=== PATIENT | female | born 1945 | race Caucasian/White ===

== ENCOUNTER → 2020-01-26 11:58 | Outpatient (BNVA) | payer MEDICARE, OTHER, SELFPAY | PROVIDERS: PCP Family Medicine; Visit Provider Family Medicine | DX: E78.5 Hyperlipidemia, unspecified (principal); I10 Essential (primary) hypertension; K21.9 Gastro-esophageal reflux disease without esophagitis; Z12.31 Encounter for screening mammogram for malignant neoplasm of breast; M81.0 Age-related osteoporosis without current pathological fracture; J30.2 Other seasonal allergic rhinitis; M19.90 Unspecified osteoarthritis, unspecified site; E78.2 Mixed hyperlipidemia | CPT/HCPCS: 80053; 80061; 84443 ==

== ENCOUNTER → 2020-02-01 10:30 | Outpatient (BNVA) | payer MEDICARE, OTHER, SELFPAY | PROVIDERS: PCP Family Medicine; Visit Provider Family Medicine | DX: R79.89 Other specified abnormal findings of blood chemistry (principal); E03.9 Hypothyroidism, unspecified | CPT/HCPCS: 84439; 84443 ==

== ENCOUNTER → 2020-02-07 15:13 | Outpatient (BNVA) | payer MEDICARE, OTHER, SELFPAY | PROVIDERS: PCP Family Medicine; Visit Provider Family Medicine | DX: R35.0 Frequency of micturition (principal); N30.01 Acute cystitis with hematuria; R30.0 Dysuria | CPT/HCPCS: 81001 ==

== ENCOUNTER 2020-03-30 13:29 | Outpatient (CLI) | payer MEDICARE, OTHER, SELFPAY ==
--- NOTE | 2020-03-30 14:00 | MM_ITS ---
WS: [id number] SCREENING DIGITAL MAMMOGRAM WITH CAD HISTORY: screening COMPARISON: 05/13/2018 and 05/08/2017 Bilateral CC and MLO views submitted. Computer aided detection analyzed. Breast composition: There are scattered areas of fibroglandular density. No suspicious masses, microc alcifications or architectural distortion. Benign calcification upper-outer quadrant RIGHT breast. MM/[place] [id number] IMPRESSION: BI-RADS: 2-Benign FOLLOW UP: 1 Year Follow-up
--- NOTE | 2020-03-30 14:09 | XR_ITS ---
WS: [id number] SCREENING DEXA SCAN [facility] CLINICAL INFORMATION: osteoporosis COMPARISON: May 13, 2018 FINDINGS: The L1-L4 bone mineral density measures 1.069 g/cm2. This corresponds to a T score score of -0.9 and Z score of 0.8. Endplate sclerosis spuriously elevates bone mineral density Left femoral neck bone mineral density measures 0.781 g/cm2. This corresponds to a T score of -1.8 an d Z score of 0.0. Right femoral neck bone mineral density measures 0.792 g/cm2. This corresponds to a T score -1.7of an d Z score of 0.1. Mean femoral neck bone mineral density measures 0.787 g/cm2. This corresponds to a T score of -1.8 an d Z score of 0.0. XR/XR DEXA axial skeleton* [id number] IMPRESSION: Osteopenia in the femoral necks and lumbar spine. Patient's FRAX calculated 10 year probability for major osteoporotic fracture i s 33.8 % and osteoporotic hip fracture is 20.2%.
== END 2020-03-30 13:30 | disposition home or self-care (01) ==
LOC: RADSHAW 13:32
PROVIDERS: PCP Family Medicine; Visit Provider Family Medicine
DX: M81.0 Age-related osteoporosis without current pathological fracture (principal); Z12.31 Encounter for screening mammogram for malignant neoplasm of breast
CPT/HCPCS: 77067; 77080

== ENCOUNTER → 2020-07-11 10:53 | Outpatient (BNVA) | payer MEDICARE, OTHER, SELFPAY | PROVIDERS: PCP Family Medicine; Visit Provider Family Medicine | DX: E78.5 Hyperlipidemia, unspecified (principal); I10 Essential (primary) hypertension; K21.9 Gastro-esophageal reflux disease without esophagitis; E78.2 Mixed hyperlipidemia | CPT/HCPCS: 80053; 80061; 84443; 85025 ==

== ENCOUNTER → 2020-07-23 10:04 | Outpatient (BNVA) | payer MEDICARE, OTHER, SELFPAY | PROVIDERS: PCP Family Medicine; Visit Provider Family Medicine | DX: R79.89 Other specified abnormal findings of blood chemistry (principal); E78.2 Mixed hyperlipidemia; I10 Essential (primary) hypertension; K21.9 Gastro-esophageal reflux disease without esophagitis | CPT/HCPCS: 84439; 84481 ==

== ENCOUNTER 2020-12-02 14:25 | Emergency (ER) | payer MEDICARE, OTHER, SELFPAY ==
[2020-12-02] VITALS (8 sets, daily range): BP systolic 92–119; BP diastolic 64–85; PULSE 86–125; RESP 17–21; TEMP 36.8; O2SAT 92–100; BMI 23.0
--- NOTE | 2020-12-02 15:09 | XRR_ITS ---
PROCEDURE INFORMATION: Exam: XR Chest Exam date and time: 12/02/2020 3:41 PM Age: 75 years old Clinical indication: Shortness of breath; Additional info: SOB TECHNIQUE: Imaging protocol: XR of the chest. Views: 1 view. COMPARISON: No relevant prior studies available. FINDINGS: Lungs: Hyperinflation of lungs. Moderate emphysema. No focal airspace opacities. Pleural spaces: Unremarkable. No pleural effusion. No pneumothorax. Heart/Mediastinum: Unremarkable. No cardiomegaly. Vasculature: Moderate atherosclerosis. Bones/joints: Unremarkable. XR/XR chest 1V portable [id number] IMPRESSION: No acute chest findings.
--- NOTE | 2020-12-02 15:59 | W.ED.GENADLT ---
HPI - General Adult General: Chief complaint: General Medical Stated complaint: rapid heartbeat, SOB Time Seen by Provider: 12/02/20 15:49 History of Present Illness: HPI narrative: The patient is a 75-year-old female with past medical history high blood pressure and old tachycardias who comes to the ER complaining of rapid heartbeat and palpitations since 4 AM this morning. 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 She says she has a finger pulse ox at home which at times has been reading in the 120s when she is just sitting there. She says she had an episode of tachycardia in the past years ago and wore a Holter monitor which showed nothing but has not had any problems since. With exertion her tachycardia and palpitations worsen. Onset (ago): hour(s) (12) Severity: moderate Pain Consistency: constant Associated symptoms: Reports palpitations; Deny confusion, dyspnea, headache(s) or rash Review of Systems General: Reports: 10 or more systems reviewed and unremarkable except in HPI and below Const: Denies: fatigue Eyes: Denies: change in vision, blurry vision or eye redness ENMT: Denies: throat pain, swelling of lips/tongue, ear or mastoid pain or nasal congestion Card: Reports: palpitations Resp: Denies: dyspnea, productive cough or non-productive cough GI: Denies: abdominal pain, diarrhea or GI cramping : Denies: flank pain, difficulty voiding, urinary frequency or urinary urgency Musc: Denies: neck pain, back pain, extremity pain, joint pain, joint redness, limited range of motion or muscle weakness Skin/Breast: Denies: rash, pruritus, erythema, skin pain or skin tenderness Neuro: Denies: headache(s), numbness in extremities, weakness in extremities, sensory changes, difficulty walking, dizziness, confusion or Slurred speech present Psych: Denies: anxiety or depression Endo: Denies: polyuria All/Imm: Denies: urticaria, throat swelling or tongue swelling PFSH ED PFSH: Medical History (Updated 12/02/20 @ 19:51 by Evin Esquivel DO) Gastroesophageal reflux disease Hyperlipidemia Hypertension Osteoporosis Social History Smoking and tobacco status: never smoked Alcohol intake: never Physical Exam Const: COMMON NORMALS: no acute distress, average body habitus, patient oriented x3, no limitations, healthy appearing, alert and well nourished GENERAL APPEARANCE: cooperative, comfortable, well kempt and well developed ORIENTATION/CONSCIOUSNESS: Yes awake, Yes oriented to person, Yes oriented to place and Yes oriented to time HENMT: COMMON NORMALS: normocephalic, external ears normal and Normal external nose present HEAD & SCALP: normal to inspection and normocephalic NOSE: Normal external nose present EXTERNAL EAR: Yes external ears normal MOUTH: Normal oral and palatal mucosa present THROAT: posterior oropharynx normal Eye: COMMON NORMALS: Equal, round and reactive pupils present and EOMs intact bilaterally GENERAL EYE: appearance normal, both eyes and all related structures PUPIL: Yes Equal, round and reactive pupils present Neck/C-Spine: COMMON NORMALS: full ROM, no lymphadenopathy, no meningeal signs and no JVD GENERAL: Yes normal visual inspection Lymph: LYMPHATIC: no lymphadenopathy noted Chest: COMMONS NORMALS: normal inspection of the chest and normal palpation of entire chest wall Resp: COMMON NORMALS: normal respiratory effort, No retractions, No use of accessory muscles, clear to auscultation bilaterally and percussion normal EFFORT & INSPECTION: Yes able to speak in complete sentences AUSCULTATION: clear to auscultation bilaterally PERCUSSION: percussion normal Cardio: COMMON NORMALS: no JVD, regular rate, regular rhythm, S1 normal heart sound present, S2 normal heart sound present and Peripheral pulses 2+ throughout RATE: regular rate RHYTHM: regular rhythm HEART SOUNDS: S1 normal heart sound present and S2 normal heart sound present PERIPHERAL PULSES: Peripheral pulses 2+ throughout GI: COMMON NORMALS: Normal to inspection, nondistended, normoactive bowel sounds present, Soft to palpation, non-tender and no masses INSPECTION: Yes normal to inspection PALPATION: Yes Soft to palpation : COMMON NORMALS: Yes no CVA tenderness BLADDER/KIDNEY EXAM: Yes no CVA tenderness Back/Pelvis: COMMON NORMALS: no CVA tenderness, thoracic and lumbar spine normal to inspection, no thoracic nor lumbar tenderness and thoraco-lumbar ROM normal Extremity: COMMON NORMALS: normal to inspection, full ROM, capillary refill normal, no joint enlargement and no pedal edema GENERAL: Yes normal exam except as noted Neuro: COMMON NORMALS: patient oriented x3, CN's II-XII intact bilaterally, moves all extremities, no focal motor deficits, no sensory deficits noted and gait normal SENSORIUM/ORIENTATION: Yes alert, Yes oriented to person, Yes oriented to place and Yes oriented to time MENINGEAL SIGNS: Yes no meningeal signs Psych: COMMON NORMALS: mental status grossly normal, Normal thought process present, cooperative, normal affect and speech normal APPEARANCE: Yes well kempt ATTITUDE: Yes calm SPEECH: Yes normal speech THOUGHT PROCESS: Normal thought process present Skin: COMMON NORMALS: no rashes or lesions noted GENERAL SKIN EXAM: no rashes or lesions noted Course Vital Signs: Vital signs: Vital Signs Temperature 98.2 F 12/02/20 14:55 Pulse Rate 86 12/02/20 20:36 Respiratory Rate 17 12/02/20 20:36 Blood Pressure 119/85 12/02/20 20:36 Pulse Oximetry 99 12/02/20 20:36 MDM - General Adult MDM Narrative: Medical decision making narrative: Signed out to Dr. Esquivel at shift change. TSH pending. Lab Data: Labs: Lab Results 12/02/20 12/02/20 12/02/20 Range/Units 16:18 16:18 16:18 WBC 8.2 (4.0-10.0) 10^3/ uL RBC 4.88 (4.1-5.3) 10^6/u L Hgb 13.4 (11.5-15.3) g/dL Hct 42.0 (37.0-47.0) % MCV 86.1 (81-99) fL MCH 27.5 L (28.0-34.0) pg MCHC 31.9 (30.0-36.0) g/dL RDW 14.6 (12.1-15.1) % Plt Count 227 (130-400) 10^3/c mm MPV 11.3 H (7.4-10.4) fL Neut % (Auto) 66.2 % Lymph % (Auto) 22.9 % Phillips % (Auto) 9.6 % Eos % (Auto) 0.9 % Baso % (Auto) 0.2 % Neut # (Auto) 5.40 (1.8-7.7) 10^3/u L Lymph # (Auto) 1.9 (0.8-4.8) 10^3/u L Phillips # (Auto) 0.8 (0.2-0.9) 10^3/u L Eos # (Auto) 0.1 (0.0-0.8) 10^3/u L Baso # (Auto) 0.0 (0.0-0.1) 10^3/u L Nucleated RBC % (a uto) 0 % Nucleated RBCs # 0.0 /100WBC D-Dimer (0-0.59) ug/mIFE U Sodium 143 (136-145) mmol/L Potassium 3.8 (3.5-5.1) mmol/L Chloride 106 (98-107) mmol/L Carbon Dioxide 26 (22-29) mmol/L Anion Gap 14.8 (5-19) BUN 17 (8-23) mg/dL Creatinine 0.8 (0.5-0.9) mg/dL GFR Calculation Not Reportable Glucose 93 (65-115) mg/dL Calculated Osmolal ity 297 H (285-295) mOsm/k g Calcium 8.3 L (8.5-10.5) mg/dL Total Bilirubin 0.3 (0.15-1.2) mg/dL AST 27 (0-32) U/L ALT 29 (0-33) U/L Alkaline Phosphata se 64 (35-105) IU/L Troponin T Baselin e 47 H (0-10) ng/L Troponin T 120 Min [place] (0-10) ng/L Delta Troponin T (0-10) ABS# NT-Pro-B Natriuret Pep 1518 H (0-450) pg/mL Total Protein 6.7 (6.6-8.7) g/dL Albumin 4.3 (3.5-5.2) g/dL Globulin 2.4 (1.3-4.6) g/dL TSH (0.27-4.20) uIU/ mL Urine Color (Yellow) Urine Appearance (CLEAR) Urine pH (5-7) Ur Specific Gravit y (1.005-1.030) Urine Protein (Negative) Urine Glucose (UA) (Normal) Urine Ketones (Negative) Urine Blood (Negative) Urine Nitrate (Negative) Urine Bilirubin (Negative) Urine Urobilinogen (Negative) mg/dL Ur Leukocyte Orly ase (Negative) Urine RBC (0-2) /hpf Urine WBC (0-5) /hpf Ur Squamous Epith Cells (0-5) /hpf Amorphous Sediment Urine Bacteria (NONE) /hpf 12/02/20 12/02/20 12/02/20 Range/Units 16:18 16:18 17:36 WBC (4.0-10.0) 10^3/ uL RBC (4.1-5.3) 10^6/u L Hgb (11.5-15.3) g/dL Hct (37.0-47.0) % MCV (81-99) fL MCH (28.0-34.0) pg MCHC (30.0-36.0) g/dL RDW (12.1-15.1) % Plt Count (130-400) 10^3/c mm MPV (7.4-10.4) fL Neut % (Auto) % Lymph % (Auto) % Phillips % (Auto) % Eos % (Auto) % Baso % (Auto) % Neut # (Auto) (1.8-7.7) 10^3/u L Lymph # (Auto) (0.8-4.8) 10^3/u L Phillips # (Auto) (0.2-0.9) 10^3/u L Eos # (Auto) (0.0-0.8) 10^3/u L Baso # (Auto) (0.0-0.1) 10^3/u L Nucleated RBC % (a uto) % Nucleated RBCs # /100WBC D-Dimer 1.03 H (0-0.59) ug/mIFE U Sodium (136-145) mmol/L Potassium (3.5-5.1) mmol/L Chloride (98-107) mmol/L Carbon Dioxide (22-29) mmol/L Anion Gap (5-19) BUN (8-23) mg/dL Creatinine (0.5-0.9) mg/dL GFR Calculation Glucose (65-115) mg/dL Calculated Osmolal ity (285-295) mOsm/k g Calcium (8.5-10.5) mg/dL Total Bilirubin (0.15-1.2) mg/dL AST (0-32) U/L ALT (0-33) U/L Alkaline Phosphata se (35-105) IU/L Troponin T Baselin e (0-10) ng/L Troponin T 120 Min [place] (0-10) ng/L Delta Troponin T (0-10) ABS# NT-Pro-B Natriuret Pep (0-450) pg/mL Total Protein (6.6-8.7) g/dL Albumin (3.5-5.2) g/dL Globulin (1.3-4.6) g/dL TSH 0.01 L (0.27-4.20) uIU/ mL Urine Color Yellow (Yellow) Urine Appearance Clear (CLEAR) Urine pH 7 (5-7) Ur Specific Gravit y 1.010 (1.005-1.030) Urine Protein Neg (Negative) Urine Glucose (UA) Norm (Normal) Urine Ketones Negative (Negative) Urine Blood Neg (Negative) Urine Nitrate Negative (Negative) Urine Bilirubin Neg (Negative) Urine Urobilinogen Norm (Negative) mg/dL Ur Leukocyte Orly ase 2+ H (Negative) Urine RBC None (0-2) /hpf Urine WBC 15-25 H (0-5) /hpf Ur Squamous Epith Cells 0-4 H (0-5) /hpf Amorphous Sediment Not Reportable Urine Bacteria 2+ H (NONE) /hpf 12/02/20 Range/Units 18:40 WBC (4.0-10.0) 10^3/ uL RBC (4.1-5.3) 10^6/u L Hgb (11.5-15.3) g/dL Hct (37.0-47.0) % MCV (81-99) fL MCH (28.0-34.0) pg MCHC (30.0-36.0) g/dL RDW (12.1-15.1) % Plt Count (130-400) 10^3/c mm MPV (7.4-10.4) fL Neut % (Auto) % Lymph % (Auto) % Phillips % (Auto) % Eos % (Auto) % Baso % (Auto) % Neut # (Auto) (1.8-7.7) 10^3/u L Lymph # (Auto) (0.8-4.8) 10^3/u L Phillips # (Auto) (0.2-0.9) 10^3/u L Eos # (Auto) (0.0-0.8) 10^3/u L Baso # (Auto) (0.0-0.1) 10^3/u L Nucleated RBC % (a uto) % Nucleated RBCs # /100WBC D-Dimer (0-0.59) ug/mIFE U Sodium (136-145) mmol/L Potassium (3.5-5.1) mmol/L Chloride (98-107) mmol/L Carbon Dioxide (22-29) mmol/L Anion Gap (5-19) BUN (8-23) mg/dL Creatinine (0.5-0.9) mg/dL GFR Calculation Glucose (65-115) mg/dL Calculated Osmolal ity (285-295) mOsm/k g Calcium (8.5-10.5) mg/dL Total Bilirubin (0.15-1.2) mg/dL AST (0-32) U/L ALT (0-33) U/L Alkaline Phosphata se (35-105) IU/L Troponin T Baselin e (0-10) ng/L Troponin T 120 Min [place] 46.98 H (0-10) ng/L Delta Troponin T -0.02 L (0-10) ABS# NT-Pro-B Natriuret Pep (0-450) pg/mL Total Protein (6.6-8.7) g/dL Albumin (3.5-5.2) g/dL Globulin (1.3-4.6) g/dL TSH (0.27-4.20) uIU/ mL Urine Color (Yellow) Urine Appearance (CLEAR) Urine pH (5-7) Ur Specific Gravit y (1.005-1.030) Urine Protein (Negative) Urine Glucose (UA) (Normal) Urine Ketones (Negative) Urine Blood (Negative) Urine Nitrate (Negative) Urine Bilirubin (Negative) Urine Urobilinogen (Negative) mg/dL Ur Leukocyte Orly ase (Negative) Urine RBC (0-2) /hpf Urine WBC (0-5) /hpf Ur Squamous Epith Cells (0-5) /hpf Amorphous Sediment Urine Bacteria (NONE) /hpf Discharge Plan Discharge Patient Disposition: Home Clinical Impression: Sinus tachycardia, Hyperthyroidism Urinary tract infection Qualifiers: Urinary tract infection type: acute cystitis Hematuria presence: without hematuria Qualified Code(s): N30.00 - Acute cystitis without hematuria Condition: Stable Prescriptions: New cefdinir 300 mg capsule 300 mg PO BID 7 Days Qty: 14 RF: 0 metoprolol tartrate 25 mg tablet 25 mg PO BID Qty: 60 RF: 0 No Action aspirin [Adult Low Dose Aspirin] 81 mg tablet,delayed release (DR/EC) 81 mg PO DAILY@0830 RF: 0 Vitamin D3 50 mcg (2,000 unit) Tablet 50 mcg PO DAILY@0830 RF: 0 zinc 1 tab PO DAILY@08 RF: 0 cyclobenzaprine 10 mg tablet 10 mg PO DAILY PRN (Reason: MUSCLE SPASMS) RF: 0 Fosamax 70 mg tablet 70 mg PO Q7D RF: 0 omeprazole 40 mg capsule,delayed release(DR/EC) 40 mg PO BID@0800,2129 RF: 0 tramadol 50 mg tablet 50 mg PO BID@0830,2129 PRN (Reason: Pain) RF: 0 lisinopril-hydrochlorothiazide 10-12.5 mg tablet 1 tab PO DAILY@08 RF: 0 Claritin 10 mg tablet 10 mg PO DAILY@829 RF: 0 Zetia 10 mg tablet 10 mg PO DAILY@2129 RF: 0 rosuvastatin 40 mg tablet 40 mg PO DAILY@2129 RF: 0 Discharge Orders: Discharge ED (Routine); Ordered 12/02/20 Ordered By: Evin Esquivel Referrals: Ivone Wyman MD [Primary Care Provider] - 4-7 days Discharge Diet: Usual diet Discharge Activity: Increase activity as tolerated Patient Instructions: Palpitations (ED), Urinary Tract Infection in Women (ED) Activity Restrictions/Additional Instructions: Occasions as directed. Monitor your heart rate and blood pressure daily. If your blood pressure gets too low, you may cut your metoprolol dose in half twice daily. Antibiotics as directed. Return for worsening feeling of heart palpitations, syncope or passing out, chest discomfort, mental status changes, fever, any other concerning symptoms peer see your doctor this week for follow-up. More outpatient testing may be needed. Coding Level of Care Code ED Grants Assistant for Melissa Fwd Exam Comprehensive
--- NOTE | 2020-12-02 16:24 | CTR_ITS ---
PROCEDURE INFORMATION: Exam: CTA Chest With Contrast Exam date and time: 12/02/2020 5:17 PM Age: 75 years old Clinical indication: Shortness of breath; Patient HX: Tachy w SOB elev d-dimer; Additional info: Tachycardia/palpitations TECHNIQUE: Imaging protocol: Computed tomographic angiography of the chest with contrast. 3D rendering (Not supervised by radiologist): MIP and/or 3D reconstructed images were created by the technologist. Radiation optimization: All CT scans at this facility use at least one of these dose optimization techniques: automated exposure control; mA and/or kV adjustment per patient size (includes targeted exams where dose is matched to clinical indication); or iterative reconstruction. Contrast material: OMNI 350; Contrast volume: 70 ml; Contrast route: INTRAVENOUS (IV); COMPARISON: CR (CHEST, ) 12/02/2020 3:47 PM RADIATION DOSE METRICS: Total DLP (mGy-cm): 506.72 FINDINGS: Pulmonary arteries: Normal. No pulmonary emboli. Aorta: Mild dilation of ascending thoracic aorta measuring 3.9 cm greatest transverse diameter. No dissection. No intramural hematoma. Moderate calcified atherosclerotic wall plaque. 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 Thyroid: Multinodular thyroid gland, incompletely assessed. Lungs: Moderate severity emphysema. No focal pulmonary consolidation. No obstructing endobronchial lesion. No septal thickening. Pleural spaces: Unremarkable. No pneumothorax. No pleural effusion. Heart: Mild dilation of cardiac chambers. No pericardial effusion. Mediastinal space: Calcified granulomas in the subcarinal space of the mediastinum. Lymph nodes: Unremarkable. No enlarged lymph nodes. Bones/joints: Unremarkable. No acute fracture. Soft tissues: Unremarkable. CT/CT angio chest PE protcl [id number] IMPRESSION: Negative CT angiogram chest. No pulmonary embolism. No acute findings. Radiation Dose CTDIVOL = (mGy): DLP = 506.72 (mGy-cm)
[2020-12-02 16:51] LABS: Basophils % 0.2 %; Eosinophils # 0.1 10^3/uL (0.0-0.8); Eosinophils % 0.9 %; Hemoglobin 13.4 g/dL (11.5-15.3); Lymphocytes # 1.9 10^3/uL (0.8-4.8); Lymphocytes % 22.9 %; Mean Corpuscular HGB Conc 31.9 g/dL (30.0-36.0); Mean Corpuscular Hemoglobin 27.5 pg (28.0-34.0); Mean Corpuscular Volume 86.1 fL (81-99); Mean Platelet Volume 11.3 fL (7.4-10.4); Monocytes # 0.8 10^3/uL (0.2-0.9); Monocytes % 9.6 %; Neutrophils % 66.2 %; Nucleated Red Blood Cells % 0 %; Platelet Count 227 10^3/cmm (130-400); Red Blood Count 4.88 10^6/uL (4.1-5.3); Red Cell Distribution Width 14.6 % (12.1-15.1); White Blood Count 8.2 10^3/uL (4.0-10.0)
[2020-12-02 17:05] LABS: D Dimer 1.03 ug/mIFEU (0-0.59)
[2020-12-02 17:16] LABS: Troponin(5th) Baseline 47 ng/L (0-10)
[2020-12-02 17:24] LABS: Alanine Aminotransferase 29 U/L (0-33); Albumin Level 4.3 g/dL (3.5-5.2); Alkaline Phosphatase 64 IU/L (35-105); Anion Gap 14.8 (5-19); Aspartate Amino Transferase 27 U/L (0-32); Blood Urea Nitrogen 17 mg/dL (8-23); Calcium 8.3 mg/dL (8.5-10.5); Carbon Dioxide 26 mmol/L (22-29); Chloride 106 mmol/L (98-107); Globulin 2.4 g/dL (1.3-4.6); Glucose 93 mg/dL (65-115); NT Pro B Type Natriuretic Pept 1518 pg/mL (0-450); Osmolality Calculated 297 mOsm/kg (285-295); Potassium 3.8 mmol/L (3.5-5.1); Sodium 143 mmol/L (136-145); Total Bilirubin 0.3 mg/dL (0.15-1.2); Total Protein 6.7 g/dL (6.6-8.7)
[2020-12-02] MEDS: iohexol 350 mg/mL 100 mL Btl IV (17:40)
[2020-12-02] MEDS: sodium chloride 0.9% 1,000 ML 999 ML IV (17:52)
[2020-12-02 17:57] LABS: Urine Appearance Clear (CLEAR); Urine Color Yellow (Yellow); pH Urine 7 (5-7)
[2020-12-02 17:58] LABS: Glucose Urine UA Norm (Normal); Protein Urine Neg (Negative)
[2020-12-02 17:59] LABS: Add Urine Microscopic? YES; Bilirubin Urine Neg (Negative); Blood Urine Neg (Negative); Ketones Urine Negative (Negative); Leukocyte Esterase Urine 2+ (Negative); Nitrate Urine Negative (Negative); Urobilinogen Urine Norm (Negative)
[2020-12-02 18:00] LABS: Add Urine Culture? Yes; Bacteria Urine 2+ /hpf; Squamous Epithelial Cell Urine 0-4 /hpf (0-5); WBC Urine 15-25 /hpf (0-5)
[2020-12-02 18:46] LABS: Thyroid Stimulating Hormone 0.01 uIU/mL (0.27-4.20)
[2020-12-02] MEDS: cefTRIAXone 1,000 MG in sodium chloride 0.9% (plus) 50 ML 100 MG IV (18:58)
[2020-12-02 19:04] LABS: Troponin 5 2HR 46.98 ng/L (0-10)
[2020-12-02 19:06] LABS: Troponin 5 2HR Delta -0.02 ABS# (0-10)
[2020-12-02] MEDS: metoprolol tartrate 1 mg/1 mL SDV 5 mL 2.5 MG IV (20:22)
--- NOTE | 2020-12-02 21:56 | ECG_ITS ---
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 Measurements Intervals [place] Rate: 119 P: MD: QRS: 68 QRSD: 85 T: 90 QT: 319 QTc: 449 Interpretive Statements SUPRAVENTRICULAR TACHYCARDIA POSSIBLE RIGHT VENTRICULAR CONDUCTION DELAY [RSR (QR) IN V1/V2] ANTEROSEPTAL MYOCARDIAL INFARCTION [40+ ms Q WAVE IN V1-V4], OF INDETERMINATE AGE Compared to ECG 02/09/2017 10:05:42 Myocardial infarct finding now present Sinus rhythm no longer present Electronically Signed On 12-03-2020 20:15:35 CDT by Lazaro Jimenez M.D. [email or web address]
--- NOTE | 2020-12-03 13:36 | DCPLANNER ---
shipping manager had message to schedule a follow up appointment for patient with endocrinology. shipping manager called the office of Dr. Jacobson, gave clinic patients information. A follow up appointment was scheduled for Thursday, December 12, 2020 at 10:[address] Jacobson. shipping manager called patient and gave patient the appointment information. Patient stated that she would go to the appointment.
--- NOTE | 2020-12-19 13:17 | DCPLANNER ---
Patient had a follow up appointment scheduled for endocrinology for 12.12.20, this appointment was rescheduled.
== END 2020-12-02 20:37 | disposition home or self-care (01) ==
PROVIDERS: Family Medicine; Physician Assistant; Emergency Provider Emergency Medicine; PCP Family Medicine
DX: R00.0 Tachycardia, unspecified (principal); E05.90 Thyrotoxicosis, unspecified without thyrotoxic crisis or storm; N30.00 Acute cystitis without hematuria; Z79.82 Long term (current) use of aspirin; E78.5 Hyperlipidemia, unspecified; I10 Essential (primary) hypertension
CPT/HCPCS: 36415; 71045; 71275; 80053; 81001; 83880; 84443; 84484; 85025; 85378; 87077; 87086; 87186; 93005; 96365; 96375; 99284; J0696; J3490; J7030; Q9967

== ENCOUNTER → 2020-12-17 16:05 | Outpatient (BNVA) | payer MEDICARE, OTHER, SELFPAY | PROVIDERS: PCP Family Medicine; Visit Provider Family Medicine | DX: N39.0 Urinary tract infection, site not specified (principal); R79.89 Other specified abnormal findings of blood chemistry; Z09 Encounter for follow-up examination after completed treatment for conditions other than malignant neoplasm; R00.9 Unspecified abnormalities of heart beat | CPT/HCPCS: 81000; 81003; 84436; 84443; 84481; 87086 ==

== ENCOUNTER → 2021-01-09 09:37 | Outpatient (BNVA) | payer MEDICARE, OTHER, SELFPAY | PROVIDERS: PCP Family Medicine; Visit Provider Family Medicine | DX: E55.9 Vitamin D deficiency, unspecified (principal); E78.2 Mixed hyperlipidemia; I10 Essential (primary) hypertension; N39.0 Urinary tract infection, site not specified | CPT/HCPCS: 80053; 80061; 81003; 82306; 85025 ==

== ENCOUNTER 2021-06-20 08:42 | Outpatient (CLI) | payer MEDICARE, OTHER, SELFPAY ==
--- NOTE | 2021-06-20 08:49 | NM_ITS ---
WS: [id number] NUCLEAR MEDICINE THYROID UPTAKE AND SCAN HISTORY: Nontoxic SINGLE THYROID NODULE COMPARISON: None available. Radionucleotide: 128 uCi Iodine-123 sodium iodide capsule. Oral ingestion. Imaging performed at 24 hours post ingestion of capsule. Marker placed over the chin and suprasternal notch. Very slight increased uptake involving the lower poles of each thyroid lobe. No photopenic defects ar e appreciated. Thyroid uptake at 24 hours: 71.37%. (Normal uptake at 24 hours 10-30%). NM/NM thyroid uptake multi [id number] IMPRESSION: 1. Marked increased thyroid uptake. Differentials to consider are Graves' dise ase, multinodular toxic goiter or Shawnee's thyroiditis.
== END 2021-06-20 08:43 | disposition home or self-care (01) ==
LOC: RAD 08:44
PROVIDERS: PCP Family Medicine; Visit Provider Specialist
DX: E04.1 Nontoxic single thyroid nodule (principal); E05.90 Thyrotoxicosis, unspecified without thyrotoxic crisis or storm
CPT/HCPCS: 78014; A9516

== ENCOUNTER → 2021-07-25 10:02 | Outpatient (BNVA) | payer MEDICARE, OTHER, SELFPAY | PROVIDERS: PCP Family Medicine; Referring Provider Specialist; Visit Provider Internal Medicine | DX: R79.89 Other specified abnormal findings of blood chemistry (principal); E55.9 Vitamin D deficiency, unspecified; M79.10 Myalgia, unspecified site; E05.90 Thyrotoxicosis, unspecified without thyrotoxic crisis or storm; E78.2 Mixed hyperlipidemia; M81.0 Age-related osteoporosis without current pathological fracture | CPT/HCPCS: 36415; 80053; 82252; 82306; 83516; 84439; 84443; 84480; 86376; 99204 ==

== ENCOUNTER 2021-07-25 11:03 | Outpatient (CLI) | payer MEDICARE, OTHER, SELFPAY ==
[2021-07-25 12:15] LABS: Alanine Aminotransferase 21 U/L (0-33); Alkaline Phosphatase 50 IU/L (35-105); Aspartate Amino Transferase 28 U/L (0-32); Blood Urea Nitrogen 17 mg/dL (8-23); Calcium 9.2 mg/dL (8.5-10.5); Carbon Dioxide 22 mmol/L (22-29); Chloride 107 mmol/L (98-107); Free T4 Free Thyroxine 1.31 ng/dL (0.82-1.77); Globulin 2.5 g/dL (1.3-4.6); Glucose 83 mg/dL (65-115); Osmolality Calculated 297 mOsm/kg (285-295); Sodium 143 mmol/L (136-145); Thyroid Stimulating Hormone 0.01 uIU/mL (0.27-4.20); Total Bilirubin 0.3 mg/dL (0.15-1.2); Total Protein 6.5 g/dL (6.6-8.7)
[2021-07-25 13:49] LABS: 25 Hydroxy Vitamin D 67 ng/mL (30-100)
[2021-07-26 08:47] LABS: T3 Total 157 ng/dL (76-181)
[2021-07-26 14:07] LABS: Thyroid Peroxidase Antobodies <1 IU/mL (<9)
[2021-07-30 15:57] LABS: Creatine Kinase BB Total None Detected (None Detected); Creatine Kinase Interpretation MACRO CK TYPE 1; Creatine Kinase MB Total 0 % (<5); Creatine Kinase MM Total 87 % (95-100)
[2021-08-02 16:36] LABS: TSH Receptor Binding Antibody 1.52 IU/L (< OR = 2.00)
== END 2021-07-25 11:04 | disposition home or self-care (01) ==
PROVIDERS: PCP Family Medicine; Visit Provider Internal Medicine
DX: R79.89 Other specified abnormal findings of blood chemistry (principal); E55.9 Vitamin D deficiency, unspecified; M79.10 Myalgia, unspecified site
CPT/HCPCS: 36415; 80053; 82252; 82306; 83516; 84439; 84443; 84480; 86376

== ENCOUNTER → 2021-08-08 12:16 | Outpatient (BNVA) | payer MEDICARE, OTHER, SELFPAY | PROVIDERS: PCP Family Medicine; Visit Provider Family Medicine | DX: E05.90 Thyrotoxicosis, unspecified without thyrotoxic crisis or storm (principal); E78.2 Mixed hyperlipidemia; I10 Essential (primary) hypertension; M81.0 Age-related osteoporosis without current pathological fracture | CPT/HCPCS: 80053; 80061; 84443 ==

== ENCOUNTER → 2021-10-23 11:01 | Outpatient (BNVA) | payer MEDICARE, OTHER, SELFPAY | PROVIDERS: PCP Family Medicine; Visit Provider Internal Medicine | DX: E04.2 Nontoxic multinodular goiter (principal); E05.90 Thyrotoxicosis, unspecified without thyrotoxic crisis or storm; M79.10 Myalgia, unspecified site | CPT/HCPCS: 36415; 80053; 84439; 84443; 84480; 85025; 99214 ==

== ENCOUNTER 2021-10-23 11:50 | Outpatient (CLI) | payer MEDICARE, OTHER, SELFPAY ==
[2021-10-23 12:54] LABS: Basophils % 0.4 %; Eosinophils # 0.1 10^3/uL (0.0-0.8); Eosinophils % 1.9 %; Hematocrit 38.3 % (37.0-47.0); Hemoglobin 12.1 g/dL (11.5-15.3); Lymphocytes # 1.7 10^3/uL (0.8-4.8); Lymphocytes % 23.3 %; Mean Corpuscular HGB Conc 31.6 g/dL (30.0-36.0); Mean Corpuscular Hemoglobin 28.3 pg (28.0-34.0); Mean Corpuscular Volume 89.5 fl (81-99); Mean Platelet Volume 11.8 fL (7.4-10.4); Monocytes # 0.6 10^3/uL (0.2-0.9); Monocytes % 8.5 %; Neutrophils # 4.71 10^3/uL (1.8-7.7); Neutrophils % 65.6 %; Nucleated Red Blood Cells % 0 %; Platelet Count 195 10^3/cmm (130-400); Red Blood Count 4.28 10^6/uL (4.1-5.3); Red Cell Distribution Width 14.5 % (12.1-15.1); White Blood Count 7.2 10^3/uL (4.0-10.0)
[2021-10-23 16:01] LABS: Alanine Aminotransferase 20 U/L (0-33); Albumin Level 4.1 g/dL (3.5-5.2); Alkaline Phosphatase 60 IU/L (35-105); Anion Gap 14.9 (5-19); Aspartate Amino Transferase 25 U/L (0-32); Blood Urea Nitrogen 17 mg/dL (8-23); Calcium 8.4 mg/dL (8.5-10.5); Carbon Dioxide 25 mmol/L (22-29); Chloride 104 mmol/L (98-107); Globulin 2.2 g/dL (1.3-4.6); Glucose 88 mg/dL (65-115); Osmolality Calculated 291 mOsm/kg (285-295); Potassium 3.9 mmol/L (3.5-5.1); Sodium 140 mmol/L (136-145); Thyroid Stimulating Hormone 0.69 uIU/mL (0.27-4.20); Total Bilirubin 0.2 mg/dL (0.15-1.2); Total Protein 6.3 g/dL (6.6-8.7)
[2021-10-23 16:02] LABS: Free T4 Free Thyroxine 0.84 ng/dL (0.82-1.77)
[2021-10-24 06:03] LABS: T3 Total 102 ng/dL (76-181)
== END 2021-10-23 11:51 | disposition home or self-care (01) ==
LOC: LAB 12:00
PROVIDERS: PCP Family Medicine; Visit Provider Internal Medicine
DX: E05.90 Thyrotoxicosis, unspecified without thyrotoxic crisis or storm (principal); M79.10 Myalgia, unspecified site
CPT/HCPCS: 36415; 80053; 84439; 84443; 84480; 85025

== ENCOUNTER → 2021-12-10 12:40 | Outpatient (BNVA) | payer MEDICARE, OTHER, SELFPAY | PROVIDERS: PCP Family Medicine; Visit Provider Family Medicine | DX: E78.2 Mixed hyperlipidemia (principal); R79.89 Other specified abnormal findings of blood chemistry; I10 Essential (primary) hypertension; Z12.31 Encounter for screening mammogram for malignant neoplasm of breast; M81.0 Age-related osteoporosis without current pathological fracture; E05.90 Thyrotoxicosis, unspecified without thyrotoxic crisis or storm; K21.9 Gastro-esophageal reflux disease without esophagitis | CPT/HCPCS: 80053; 80061; 85025 ==

== ENCOUNTER 2022-03-12 11:33 | Outpatient (CLI) | payer MEDICARE, OTHER, SELFPAY ==
--- NOTE | 2022-03-12 11:38 | MM_ITS ---
WS: [id number] BILATERAL SCREENING DIGITAL BREAST TOMOSYNTHESIS MAMMOGRAM WITH CAD HISTORY: Z12.31 - Encounter for screening mammogram for malignant ... COMPARISON: 03/30/2020 and 05/13/2018 Bilateral CC and MLO views with tomosynthesis and synthetic mammography submitted. Computer aided det ection analyzed. Breast composition: There are scattered areas of fibroglandular density. No suspicious masses, microc alcifications or architectural distortion. MM/[place] [id number] IMPRESSION: BI-RADS: 1-Negative FOLLOW UP: 1 Year Follow-up
== END 2022-03-12 11:34 | disposition home or self-care (01) ==
LOC: RAD 11:34
PROVIDERS: PCP Family Medicine; Visit Provider Family Medicine
DX: Z12.31 Encounter for screening mammogram for malignant neoplasm of breast (principal)
CPT/HCPCS: 77063; 77067

== ENCOUNTER → 2022-03-25 16:03 | Outpatient (BNVA) | payer MEDICARE, OTHER, SELFPAY | PROVIDERS: PCP Family Medicine; Visit Provider Nurse Practitioner Family | DX: N39.0 Urinary tract infection, site not specified (principal) | CPT/HCPCS: 81003; 87077; 87086; 87184 ==

== ENCOUNTER 2022-04-24 13:54 | Outpatient (CLI) | payer MEDICARE, OTHER, SELFPAY ==
--- NOTE | 2022-04-24 15:00 | XR_ITS ---
WS: [id number] SCREENING DEXA SCAN [facility] CLINICAL INFORMATION: M81.0 - Age-related osteoporosis without current patholog... COMPARISON: March 30, 2020 FINDINGS: The L1-L4 bone mineral density measures 1.057 g/cm2. This corresponds to a T score score of -1.0 and Z score of 0.5. Left femoral neck bone mineral density measures 0.777 g/cm2. This corresponds to a T score of -1.8 an d Z score of -0.1. Right femoral neck bone mineral density measures 0.750 g/cm2. This corresponds to a T score -2.0of an d Z score of -0.3. Mean femoral neck bone mineral density measures 0.764 g/cm2. This corresponds to a T score of -1.9 an d Z score of -0.2. XR/XR DEXA axial skeleton* [id number] IMPRESSION: Osteopenia lumbar spine. Osteopenia femoral necks. Patient's FRAX calculated 10 year probability for major osteoporotic fracture i s 40.6 % and osteoporotic hip fracture is 26.5%. Bone mineral density lumbar spine has decreased -1.1% since 2019. Bone mineral density in the femoral necks has decreased -2.9% since 2019
== END 2022-04-24 13:55 | disposition home or self-care (01) ==
LOC: RAD 13:56
PROVIDERS: PCP Family Medicine; Visit Provider Family Medicine
DX: M81.0 Age-related osteoporosis without current pathological fracture (principal); M85.80 Other specified disorders of bone density and structure, unspecified site
CPT/HCPCS: 77080

== ENCOUNTER → 2022-04-30 12:05 | Outpatient (BNVA) | payer MEDICARE, OTHER, SELFPAY | PROVIDERS: PCP Family Medicine; Visit Provider Internal Medicine | DX: M79.10 Myalgia, unspecified site (principal); E05.90 Thyrotoxicosis, unspecified without thyrotoxic crisis or storm; E04.2 Nontoxic multinodular goiter | CPT/HCPCS: 36415; 84439; 84443; 84480; 99214 ==

== ENCOUNTER → 2022-05-28 12:25 | Outpatient (BNVA) | payer MEDICARE, OTHER, SELFPAY | PROVIDERS: PCP Family Medicine; Visit Provider Family Medicine | DX: E05.90 Thyrotoxicosis, unspecified without thyrotoxic crisis or storm (principal); E78.2 Mixed hyperlipidemia; I10 Essential (primary) hypertension; K21.9 Gastro-esophageal reflux disease without esophagitis; Z23 Encounter for immunization | CPT/HCPCS: 80053; 80061; 84443; 85025 ==

== ENCOUNTER → 2022-11-20 09:50 | Outpatient (BNVA) | payer MEDICARE, OTHER, SELFPAY | PROVIDERS: PCP Family Medicine; Visit Provider Family Medicine | DX: R79.89 Other specified abnormal findings of blood chemistry (principal); E55.9 Vitamin D deficiency, unspecified; I10 Essential (primary) hypertension; E78.5 Hyperlipidemia, unspecified; M81.0 Age-related osteoporosis without current pathological fracture | CPT/HCPCS: 80053; 80061; 82306; 85025 ==

== ENCOUNTER 2022-12-22 08:05 | Emergency (ER) | payer MEDICARE, OTHER, SELFPAY ==
[2022-12-22 08:18] VITALS: BP 136/108; PULSE 101; RESP 14; TEMP 36.8; O2SAT 94; BMI 22.3
--- NOTE | 2022-12-22 08:21 | XR_ITS ---
WS: [id number] XR chest 1V portable [id number] REASON FOR EXAM: cough, sob FINDINGS: Moderate tortuosity and mild ectasia of the thoracic aorta. Heart size is normal. Calcified granulomatous disease in both hemithoraces. Compared to the previous examination of 12/02/2020, there appears to be increased opacity, ill-defined in the left lower lung field interposed between the cardiac margin and the rib margin. 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 No other interval change is identified. XR/XR chest 1V portable [id number] IMPRESSION: Increased opacity in the left lower lung field. Chronicity is unknown since the previous examination was 12/02/2020. An acute or subacute pneumonitis should be be considered and follow-up examination performed.
--- NOTE | 2022-12-22 08:22 | W.ED.URI ---
HPI - URI/Sore Throat General: Chief Complaint: Urogenital-Female Stated Complaint: fever, cough, urinary problems Time Seen by Provider: 12/22/22 08:06 Source: patient Mode of arrival: ambulatory Limitations: no limitations History of Present Illness: Patient is a 77-year-old female presents to ED today along with her for evaluation of upper respiratory-like symptoms and reported UTI. Patient states about a week and a half ago she began developing laryngitis stating her voice was hoarse for about 2 days. She states following this she began developing rhinorrhea, low-grade fevers, body aches, headache and cough. She believes her daughter and grandson had similar symptoms before she got sick. Patient feels like her fevers have subsided as well as the headache but is complaining of persistent body aches, nonproductive cough, and feeling short of breath especially with exertion. Patient denies chest pains. She has not noticed any lower extremity swelling or calf pain. No PND or orthopnea. Patient states a few days ago she began having dysuria and urinary frequency. She began taking Azo for presumed UTI. She denies abdominal pain or flank pain. MD elicited complaint: fever, cough, rhinorrhea and other (body aches, ARTEAGA, UTI like symptoms ) Onset (ago): day(s) Severity: moderate Description of mucous: clear Able to tolerate fluids by mouth: Yes Exacerbating factors: nothing Relieving factors: nothing Context: sick contacts (daughter/grandson) Associated symptoms: Reports change in voice (initially although this has improved now), cough, fever(s) (subsided ), headache(s) (subsided) and short of breath; Deny abdominal pain, chest pain, diarrhea, ear or mastoid pain, nasal congestion, nausea, sinus pain or vomiting Review of Systems Const: Reports: fever(s) (subsided ), body aches and fatigue Eyes: Denies: change in vision, blurry vision, photophobia, floaters or seeing flashes ENMT: Reports: nasal discharge (rhinorrhea has improved ); Denies: throat pain, odynophagia, ear or mastoid pain, ear discharge, nasal congestion or sinus pain Card: Reports: dyspnea on exertion; Denies: chest pain, palpitations, irregular heart rhythm, edema, swelling of feet/ankles, lightheadedness, syncope, pre-syncope, orthopnea, leg pain with exertion or acrocyanosis Resp: Reports: dyspnea, non-productive cough and chest congestion; Denies: wheezing or hemoptysis GI: Denies: abdominal pain, nausea, vomiting or diarrhea : Reports: dysuria, urinary frequency and urinary urgency; Denies: flank pain, difficulty voiding, urinary hesitancy, dribbling, hematuria or pelvic pain Musc: Denies: neck pain, back pain, extremity pain or joint pain Skin/Breast: Denies: rash Neuro: Reports: headache(s) (subsided); Denies: numbness in extremities, weakness in extremities, sensory changes, dizziness or confusion PFSH ED PFSH: Medical History Gastroesophageal reflux disease Hyperlipidemia Hypertension Osteoporosis Surgical History H/O section Hx of hysterectomy Family History Father Heart attack Mother Osteoporosis Pneumonia Social History Smoking and tobacco status: never smoked Second hand smoke exposure: No Smoking risk assessment/counseling performed?: No Alcohol intake: never Desire information about alcohol rehabilitation?: No Counseling given: No Substance/Drug Use: never Desire information about substance/drug rehabilitation?: No Counseling given: No Lives independently: Yes Household members: spouse Housing: House Marital status: Number of children: 2 Highest education level completed: High School Graduate service: No Current occupational status: retired Physical Exam Const: COMMON NORMALS: no acute distress, average body habitus, patient oriented x3, no limitations, healthy appearing, alert and well nourished GENERAL APPEARANCE: cooperative ORIENTATION/CONSCIOUSNESS: Yes awake, Yes oriented to person, Yes oriented to place and Yes oriented to time HENMT: COMMON NORMALS: normocephalic, atraumatic, hearing grossly normal bilaterally, external ears normal, EAC's normal, TM's normal bilaterally, Normal external nose present, Normal nasal mucous membranes and turbinates present, moist oral mucous membranes, dentition normal and gingiva normal HEAD & SCALP: normal to inspection, normocephalic and atraumatic FACE & SINUS: normal facial exam and sinuses nontender NOSE: Normal external nose present and Normal nasal mucous membranes and turbinates present EXTERNAL EAR: Yes external ears normal EXTERNAL AUDITORY CANAL: EAC's normal TYMPANIC MEMBRANE: TM's normal bilaterally MOUTH: Normal oral and palatal mucosa present, lip normal and tongue normal THROAT: tonsils normal, uvula midline and posterior oropharynx abnormal erythema Eye: COMMON NORMALS: Equal, round and reactive pupils present, EOMs intact bilaterally and conjunctivae normal GENERAL EYE: appearance normal, both eyes and all related structures CONJUNCTIVA: Yes conjunctivae normal PUPIL: Yes Equal, round and reactive pupils present Neck/C-Spine: COMMON NORMALS: full ROM, no lymphadenopathy and no meningeal signs GENERAL: Yes normal visual inspection Chest: COMMONS NORMALS: normal inspection of the chest and normal palpation of entire chest wall Resp: COMMON NORMALS: normal respiratory effort and clear to auscultation bilaterally AUSCULTATION: clear to auscultation bilaterally Cardio: COMMON NORMALS: regular rhythm RATE: tachycardic (mild-103) RHYTHM: regular rhythm GI: COMMON NORMALS: Normal to inspection, nondistended, normoactive bowel sounds present, Soft to palpation and non-tender PALPATION: Yes Soft to palpation : COMMON NORMALS: Yes no CVA tenderness BLADDER/KIDNEY EXAM: Yes no CVA tenderness Back/Pelvis: COMMON NORMALS: no CVA tenderness Extremity: COMMON NORMALS: normal to inspection, capillary refill normal, no joint enlargement, no clubbing, cyanosis or edema and no pedal edema GENERAL: Yes normal exam except as noted Neuro: KAYKAY COMA SCALE: document GCS findings Kaykay coma scale eye opening: Spontaneous Kaykay coma scale verbal response: Orientated Ceres coma scale motor response: Obey commands Kaykay coma scale total score: 15 COMMON NORMALS: patient oriented x3, moves all extremities, no focal motor deficits, no sensory deficits noted and gait normal SENSORIUM/ORIENTATION: Yes alert, Yes oriented to person, Yes oriented to place and Yes oriented to time MENINGEAL SIGNS: Yes no meningeal signs Skin: COMMON NORMALS: no rashes or lesions noted GENERAL SKIN EXAM: no rashes or lesions noted Course Vital Signs: Vital signs: Vital Signs Temperature 98.3 F 12/22/22 08:18 Pulse Rate 101 H 12/22/22 08:18 Respiratory Rate 14 12/22/22 08:18 Blood Pressure 136/108 12/22/22 08:18 Pulse Oximetry 94 12/22/22 08:18 Oxygen Delivery Me thod Room Air 12/22/22 08:18 MDM - URI/Sore Throat Medical Decision Making Patient appears in no acute distress. Her vital signs are stable. She is satting normally on room air. Blood work shows a white count of 13.1. She has a normal procalcitonin. Potassium was low at 2.8. She was given oral potassium here and will be placed on oral supplementation at home over the next 3 days. Magnesium was normal. UA showing significant color interference from her Azo use but did have 25-40 WBCs and 3+ bacteria therefore she will need treatment for this. CXR showing questionable left lower lobe pneumonitis. Respiratory panel pending. She will be placed on Augmentin and Azithromycin which will cover for both outpatient CAP and acute cystitis. Recommend she follow-up with PCP Dr. Wyman later this week for recheck of her potassium and possibly rechecking a UA and/or CXR based on improvement/worsening of symptoms. Strict return to ED precautions given. Lab Data 12/22/22 08:43 12/22/22 08:43 Radiology Impressions Chest X-Ray 12/22/22 08:21 IMPRESSION: Increased opacity in the left lower lung field. Chronicity is unknown since the previous examination was 12/02/2020. An acute or subacute pneumonitis should be be considered and follow-up examination performed. Laboratory Results WBC 13.1 10^3/uL (4.0-10.0) H 12/22/22 08:43 RBC 4.97 10^6/uL (4.1-5.3) 12/22/22 08:43 Hgb 13.4 g/dL (11.5-15.3) 12/22/22 08:43 Hct 41.3 % (37.0-47.0) 12/22/22 08:43 MCV 83.1 fl (81-99) 12/22/22 08:43 MCH 27.0 pg (28.0-34.0) L 12/22/22 08:43 MCHC 32.4 g/dL (30.0-36.0) 12/22/22 08:43 RDW 13.3 % (12.1-15.1) 12/22/22 08:43 Plt Count 307 10^3/cmm (130-400) 12/22/22 08:43 MPV 10.3 fL (7.4-10.4) 12/22/22 08:43 Neut % (Auto) 83.8 % 12/22/22 08:43 Lymph % (Auto) 9.3 % 12/22/22 08:43 [place] % (Auto) 5.9 % 12/22/22 08:43 Eos % (Auto) 0.3 % 12/22/22 08:43 Baso % (Auto) 0.2 % 12/22/22 08:43 Neut # (Auto) 11.01 10^3/uL (1.8-7.7) H 12/22/22 08:43 Lymph # (Auto) 1.2 10^3/uL (0.8-4.8) 12/22/22 08:43 [place] # (Auto) 0.8 10^3/uL (0.2-0.9) 12/22/22 08:43 Eos # (Auto) 0.0 10^3/uL (0.0-0.8) 12/22/22 08:43 Baso # (Auto) 0.0 10^3/uL (0.0-0.1) 12/22/22 08:43 Nucleated RBC % (auto) 0 % 12/22/22 08:43 Nucleated RBCs # 0.0 /100WBC 12/22/22 08:43 Sodium 137 mmol/L (136-145) 12/22/22 08:43 Potassium 2.8 mmol/L (3.5-5.1) L* 12/22/22 08:43 Chloride 95 mmol/L (98-107) L 12/22/22 08:43 Carbon Dioxide 28 mmol/L (22-29) 12/22/22 08:43 Anion Gap 16.8 (5-19) 12/22/22 08:43 BUN 13 mg/dL (8-23) 12/22/22 08:43 Creatinine 0.9 mg/dL (0.5-0.9) 12/22/22 08:43 GFR Calculation Not Reportable 12/22/22 08:43 Glucose 120 mg/dL (65-115) H 12/22/22 08:43 Calculated Osmolality 285 mOsm/kg (285-295) 12/22/22 08:43 Calcium 9.9 mg/dL (8.5-10.5) 12/22/22 08:43 Magnesium 1.9 mg/dL (1.7-2.3) 12/22/22 08:43 Total Bilirubin 0.4 mg/dL (0.15-1.2) 12/22/22 08:43 AST 14 U/L (0-32) 12/22/22 08:43 ALT 9 U/L (0-33) 12/22/22 08:43 Alkaline Phosphatase 88 U/L (35-105) 12/22/22 08:43 Total Protein 7.8 g/dL (6.6-8.7) 12/22/22 08:43 Albumin 3.5 g/dL (3.5-5.2) 12/22/22 08:43 Globulin 4.3 g/dL (1.3-4.6) 12/22/22 08:43 Procalcitonin 0.08 ng/mL (0-0.5) 12/22/22 08:43 Urine Color [place] (Yellow) 12/22/22 08:24 Urine Appearance Hazy (CLEAR) A 12/22/22 08:24 Urine pH TNP 12/22/22 08:24 Ur Specific [place] TNP 12/22/22 08:24 Urine Protein TNP 12/22/22 08:24 Urine Glucose (UA) TNP 12/22/22 08:24 Urine Ketones TNP 12/22/22 08:24 Urine Blood TNP 12/22/22 08:24 Urine Nitrate TNP 12/22/22 08:24 Urine Bilirubin TNP 12/22/22 08:24 Prot Sulfosalicylic Acd Negative (Negative) 12/22/22 08:24 Urine Urobilinogen TNP 12/22/22 08:24 Ur Leukocyte Esterase TNP 12/22/22 08:24 Urine RBC None /hpf (0-2) 12/22/22 08:24 Urine WBC 25-40 /hpf (0-5) H 12/22/22 08:24 Ur Squamous Epith Cells 5-10 /hpf (0-5) H 12/22/22 08:24 Amorphous Sediment Not Reportable 12/22/22 08:24 Urine Bacteria 3+ /hpf (NONE) H 12/22/22 08:24 Coarse Granular Casts 10-15 /lpf H 12/22/22 08:24 Discharge Plan Discharge Patient Disposition: Home Clinical Impression: Hypokalemia, Acute cystitis, Viral upper respiratory tract infection with cough Condition: Stable Prescriptions: New amoxicillin-pot clavulanate 875-125 mg tablet 1 tab PO BID Qty: 14 0RF potassium chloride 20 mEq tablet extended release 20 meq PO BID Qty: 6 0RF prednisone 10 mg tablet 60 mg PO DAILY 5 Days Qty: 30 0RF azithromycin 250 mg tablet See Rx Instructions .ROUTE .COMPLEX Qty: 6 0RF Rx Instructions: take 500 mg today (day 1), then 250 mg for 4 days (days 2-5) No Action aspirin [Adult Low Dose Aspirin] 81 mg tablet,delayed release (DR/EC) 81 mg PO DAILY@0830 coenzyme Q10 100 mg capsule 100 mg PO DAILY tramadol 50 mg tablet 50 mg PO BID Qty: 60 0RF alendronate 70 mg tablet See Rx Instructions .ROUTE .COMPLEX Qty: 4 4RF Dose Instruction: TAKE ONE TABLET BY MOUTH EVERY SEVEN DAYS ON THURSDAY. Rx Instructions: TAKE ONE TABLET BY MOUTH EVERY SEVEN DAYS ON THURSDAY. Vitamin D3 50 mcg (2,000 unit) tablet 50 mcg PO DAILY@0830 Qty: 30 4RF Zetia 10 mg tablet 10 mg PO DAILY@2130 Qty: 90 1RF lisinopril-hydrochlorothiazide 10-12.5 mg tablet 1 tab PO DAILY@0830 Qty: 90 1RF methimazole 5 mg tablet 5 mg PO DAILY Qty: 90 3RF Rx Instructions: Take one tablet by mouth daily. metoprolol tartrate 25 mg tablet See Rx Instructions .ROUTE .COMPLEX Qty: 60 2RF Dose Instruction: TAKE ONE TABLET BY MOUTH TWICE DAILY Rx Instructions: TAKE ONE TABLET BY MOUTH TWICE DAILY omeprazole 20 mg capsule,delayed release(DR/EC) See Rx Instructions .ROUTE .COMPLEX Qty: 60 4RF Dose Instruction: TAKE ONE CAPSULE BY MOUTH TWICE DAILY Rx Instructions: TAKE ONE CAPSULE BY MOUTH TWICE DAILY Claritin 10 mg tablet 10 mg PO DAILY@0830 Qty: 30 3RF zinc acetate 50 mg (zinc) Capsule 50 mg PO DAILY rosuvastatin 20 mg tablet 20 mg PO DAILY Discharge Orders: Discharge ED (Routine); Ordered 12/22/22 Ordered By: Purnima Monge Referrals: Ivone Wyman MD [Primary Care Provider] - Patient Instructions: Hypokalemia (ED), Upper Respiratory Infection (DC) Activity Restrictions/Additional Instructions: As we discussed please have your potassium rechecked by your primary care provider this week. They may also recheck your urine. You should be contacted if anything on your respiratory panel comes back positive. 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
[2022-12-22 08:52] LABS: Basophils % 0.2 %; Eosinophils % 0.3 %; Hematocrit 41.3 % (37.0-47.0); Hemoglobin 13.4 g/dL (11.5-15.3); Lymphocytes # 1.2 10^3/uL (0.8-4.8); Lymphocytes % 9.3 %; Mean Corpuscular HGB Conc 32.4 g/dL (30.0-36.0); Mean Corpuscular Volume 83.1 fl (81-99); Mean Platelet Volume 10.3 fL (7.4-10.4); Monocytes # 0.8 10^3/uL (0.2-0.9); Monocytes % 5.9 %; Neutrophils # 11.01 10^3/uL (1.8-7.7); Neutrophils % 83.8 %; Nucleated Red Blood Cells % 0 %; Platelet Count 307 10^3/cmm (130-400); Red Blood Count 4.97 10^6/uL (4.1-5.3); Red Cell Distribution Width 13.3 % (12.1-15.1); White Blood Count 13.1 10^3/uL (4.0-10.0)
[2022-12-22 09:20] LABS: Alanine Aminotransferase 9 U/L (0-33); Albumin Level 3.5 g/dL (3.5-5.2); Alkaline Phosphatase 88 U/L (35-105); Anion Gap 16.8 (5-19); Aspartate Amino Transferase 14 U/L (0-32); Blood Urea Nitrogen 13 mg/dL (8-23); Calcium 9.9 mg/dL (8.5-10.5); Carbon Dioxide 28 mmol/L (22-29); Chloride 95 mmol/L (98-107); Globulin 4.3 g/dL (1.3-4.6); Glucose 120 mg/dL (65-115); Osmolality Calculated 285 mOsm/kg (285-295); Sodium 137 mmol/L (136-145); Total Bilirubin 0.4 mg/dL (0.15-1.2); Total Protein 7.8 g/dL (6.6-8.7)
[2022-12-22 09:22] LABS: Potassium 2.8 mmol/L (3.5-5.1)
[2022-12-22 09:23] LABS: Urine Appearance Hazy (CLEAR); Urine Color Orange (Yellow)
[2022-12-22 09:26] LABS: Add Urine Microscopic? YES; Sulfosalicylic Acid Urine Negative (Negative)
[2022-12-22 09:27] LABS: Procalcitonin 0.08 ng/mL (0-0.5)
[2022-12-22 09:27] LABS: Bacteria Urine 3+ /hpf; WBC Urine 25-40 /hpf (0-5)
[2022-12-22] MEDS: potassium chloride ER 20 mEq Tablet 40 MEQ PO (09:27)
[2022-12-22] MEDS: potassium chloride ER 20 mEq Tablet PO (09:27)
[2022-12-22 09:28] LABS: Add Urine Culture? Yes
[2022-12-22 09:40] LABS: Magnesium 1.9 mg/dL (1.7-2.3)
[2022-12-22 10:42] LABS: Adenovirus Not Detected (NOT DETECT); Chlamydia Pneumoniae Not Detected (NOT DETECT); Coronavirus 229E,HKU1,NL63,OC4 Not Detected (NOT DETECT); Human Metapneumovirus Not Detected (NOT DETECT); Human Rhinovirus/Enterovirus Not Detected (NOT DETECT); Influenza A Not Detected (NOT DETECT); Influenza A H1 Not Detected (NOT DETECT); Influenza A H1-2009 Not Detected (NOT DETECT); Influenza A H3 Not Detected (NOT DETECT); Influenza B Not Detected (NOT DETECT); Mycoplasma Pneumoniae Not Detected (NOT DETECT); Parainfluenza Virus Type 1 Not Detected (NOT DETECT); Parainfluenza Virus Type 2 Not Detected (NOT DETECT); Parainfluenza Virus Type 3 Not Detected (NOT DETECT); Parainfluenza Virus Type 4 Not Detected (NOT DETECT); Respiratory Syncytial Virus A Not Detected (NOT DETECT); Respiratory Syncytial Virus B Not Detected (NOT DETECT); SARS-COV-2 Not Detected (NOT DETECT)
== END 2022-12-22 09:54 | disposition home or self-care (01) ==
PROVIDERS: Emergency Provider Physician Assistant; PCP Family Medicine
DX: J06.9 Acute upper respiratory infection, unspecified (principal); R05.9 Cough, unspecified; N30.00 Acute cystitis without hematuria; E87.6 Hypokalemia; Z79.82 Long term (current) use of aspirin; E78.5 Hyperlipidemia, unspecified; I10 Essential (primary) hypertension
CPT/HCPCS: 36415; 71045; 80053; 81001; 83735; 84145; 85025; 87077; 87086; 87186; 87486; 87581; 87633; 99284

== ENCOUNTER → 2022-12-26 12:26 | Outpatient (BNVA) | payer MEDICARE, OTHER, SELFPAY | PROVIDERS: PCP Family Medicine; Visit Provider Family Medicine | DX: E87.6 Hypokalemia (principal) | CPT/HCPCS: 80048 ==

== ENCOUNTER → 2022-12-30 12:01 | Outpatient (BNVA) | payer MEDICARE, OTHER, SELFPAY | PROVIDERS: PCP Family Medicine; Visit Provider Family Medicine | DX: N39.0 Urinary tract infection, site not specified (principal) | CPT/HCPCS: 81003 ==

== ENCOUNTER → 2023-03-11 15:02 | Outpatient (BNVA) | payer MEDICARE, OTHER, SELFPAY | PROVIDERS: PCP Family Medicine; Visit Provider Family Medicine | DX: N39.0 Urinary tract infection, site not specified (principal) | CPT/HCPCS: 81000 ==

== ENCOUNTER → 2023-03-17 12:00 | Outpatient (BNVA) | payer MEDICARE, OTHER, SELFPAY | PROVIDERS: PCP Family Medicine; Visit Provider Family Medicine | DX: E05.90 Thyrotoxicosis, unspecified without thyrotoxic crisis or storm (principal); E55.9 Vitamin D deficiency, unspecified; E78.2 Mixed hyperlipidemia; I10 Essential (primary) hypertension; E04.2 Nontoxic multinodular goiter; E78.5 Hyperlipidemia, unspecified; N39.0 Urinary tract infection, site not specified | CPT/HCPCS: 80053; 80061; 82306; 84443; 85025 ==

== ENCOUNTER → 2023-04-28 13:24 | Outpatient (BNVA) | payer MEDICARE, OTHER, SELFPAY | PROVIDERS: PCP Family Medicine; Visit Provider Internal Medicine | DX: E05.90 Thyrotoxicosis, unspecified without thyrotoxic crisis or storm (principal); E04.2 Nontoxic multinodular goiter | CPT/HCPCS: 99214 ==

== ENCOUNTER → 2023-06-17 10:40 | Outpatient (BNVA) | payer MEDICARE, OTHER, SELFPAY | PROVIDERS: PCP Family Medicine; Visit Provider Family Medicine | DX: E05.90 Thyrotoxicosis, unspecified without thyrotoxic crisis or storm; E55.9 Vitamin D deficiency, unspecified; E78.5 Hyperlipidemia, unspecified; I10 Essential (primary) hypertension; M79.10 Myalgia, unspecified site; R79.89 Other specified abnormal findings of blood chemistry; M81.0 Age-related osteoporosis without current pathological fracture; E78.2 Mixed hyperlipidemia | CPT/HCPCS: 80053; 80061; 82306; 84443; 85025 ==

== ENCOUNTER → 2023-12-03 13:16 | Outpatient (BNVA) | payer MEDICARE, OTHER, SELFPAY | PROVIDERS: PCP Family Medicine; Visit Provider Family Medicine | DX: E78.2 Mixed hyperlipidemia (principal); I10 Essential (primary) hypertension; E05.90 Thyrotoxicosis, unspecified without thyrotoxic crisis or storm; E55.9 Vitamin D deficiency, unspecified; M81.0 Age-related osteoporosis without current pathological fracture; Z78.9 Other specified health status; K21.9 Gastro-esophageal reflux disease without esophagitis; M19.90 Unspecified osteoarthritis, unspecified site | CPT/HCPCS: 80053; 80061; 82306; 84443; 85025 ==

== ENCOUNTER → 2024-03-26 10:22 | Outpatient (BNVA) | payer MEDICARE, OTHER, SELFPAY | PROVIDERS: PCP Family Medicine; Visit Provider Emergency Medicine | DX: N30.01 Acute cystitis with hematuria (principal); R39.9 Unspecified symptoms and signs involving the genitourinary system | CPT/HCPCS: 81000 ==

== ENCOUNTER → 2024-04-22 09:35 | Outpatient (BNVA) | payer MEDICARE, OTHER, SELFPAY | PROVIDERS: PCP Family Medicine; Visit Provider Internal Medicine | DX: E05.90 Thyrotoxicosis, unspecified without thyrotoxic crisis or storm (principal); R79.89 Other specified abnormal findings of blood chemistry | CPT/HCPCS: 84439; 84443; 84480 ==

== ENCOUNTER → 2024-04-27 08:34 | Outpatient (BNVA) | payer MEDICARE, OTHER, SELFPAY | PROVIDERS: PCP Family Medicine; Visit Provider Internal Medicine | DX: E05.90 Thyrotoxicosis, unspecified without thyrotoxic crisis or storm (principal); E04.2 Nontoxic multinodular goiter; M79.10 Myalgia, unspecified site | CPT/HCPCS: 99214 ==

== ENCOUNTER → 2024-05-05 10:23 | Outpatient (BNVA) | payer MEDICARE, OTHER, SELFPAY | PROVIDERS: PCP Family Medicine; Visit Provider Family Medicine | DX: I10 Essential (primary) hypertension (principal); M81.0 Age-related osteoporosis without current pathological fracture; E55.9 Vitamin D deficiency, unspecified; E78.2 Mixed hyperlipidemia; E05.90 Thyrotoxicosis, unspecified without thyrotoxic crisis or storm; K21.9 Gastro-esophageal reflux disease without esophagitis; R79.89 Other specified abnormal findings of blood chemistry; M79.10 Myalgia, unspecified site | CPT/HCPCS: 80053; 80061; 82306; 84443; 85025 ==

== ENCOUNTER → 2024-05-13 16:10 | Outpatient (BNVA) | payer MEDICARE, OTHER, SELFPAY | PROVIDERS: PCP Family Medicine; Visit Provider Nurse Practitioner Family | DX: N30.01 Acute cystitis with hematuria (principal) | CPT/HCPCS: 81000 ==

== ENCOUNTER → 2024-05-26 12:05 | Outpatient (BNVA) | payer MEDICARE, OTHER, SELFPAY | PROVIDERS: PCP Family Medicine; Visit Provider Nurse Practitioner Family | DX: N39.0 Urinary tract infection, site not specified (principal) | CPT/HCPCS: 81000 ==

== ENCOUNTER → 2025-03-23 09:22 | Outpatient (BNVA) | payer MEDICARE, OTHER, SELFPAY | PROVIDERS: PCP Family Medicine; Visit Provider Podiatrist Foot & Ankle Surgery | DX: L60.3 Nail dystrophy (principal) | CPT/HCPCS: 11750; 99203; J9999 ==

== ENCOUNTER → 2025-04-06 09:50 | Outpatient (BNVA) | payer MEDICARE, OTHER, SELFPAY | PROVIDERS: PCP Internal Medicine; Visit Provider Podiatrist Foot & Ankle Surgery | DX: L60.0 Ingrowing nail (principal); Z98.890 Other specified postprocedural states | CPT/HCPCS: 11750; 99213; J9999 ==

== ENCOUNTER 2025-06-15 13:21 | Outpatient (CLI) | payer MEDICARE, OTHER, SELFPAY ==
--- NOTE | 2025-06-15 13:28 | USR_ITS ---
PROCEDURE INFORMATION: Exam: US Soft Tissue Head and Neck, TI-RADS Exam date and time: 06/15/2025 1:46 PM Age: 80 years old Clinical indication: Condition or disease; Thyroid disorder; Goiter, non-toxic; Type not specified; Additional info: Goiter, toxic multinodular TECHNIQUE: Imaging protocol: Real-time ultrasound scan of the neck with image documentation. Exam focused on the thyroid. COMPARISON: CT angio chest PE protcl [id number] 12/02/2020 5:48 PM FINDINGS: Right thyroid lobe: No nodules. Right thyroid measures 1.4 x 1.8 x 5.1 cm (6.5 mL). Diffuse heterogeneous echotexture and increased vascularity. Left thyroid lobe: Left thyroid measures 1.3 x 1.6 x 4.2 cm (4.2 mL). Diffuse heterogeneous echotexture and increased vascularity. Isthmus: Not thickened. Thyroid nodule 1 Size: 0.4 x 0.5 x 0.8 cm Thyroid nodule 1 Location: Inferior left thyroid Thyroid nodule 1 Composition: Mixed cystic and solid Thyroid nodule 1 Echogenicity: Isoechoic Thyroid nodule 1 Shape: Taller than wide Thyroid nodule 1 Margins: Smooth Thyroid nodule 1 Echogenic foci: None Thyroid nodule 1 Points: 5 Thyroid nodule 2 Size: 1.9 x 1.0 x 1.4 cm Thyroid nodule 2 Location: Isthmus Thyroid nodule 2 Composition: Mixed cystic and solid Thyroid nodule 2 Echogenicity: Hypoechoic Thyroid nodule 2 Shape: Wider than tall Thyroid nodule 2 Margins: Smooth Thyroid nodule 2 Echogenic foci: None Thyroid nodule 2 Points: 3 Lymph nodes: No enlarged nodes. US/US thyroid [id number] IMPRESSION: 1. Diffusely heterogeneous thyroid echotexture with increased vascularity, suggestive of thyroiditis and/or hypothyroidism. 2. Thyroid nodules as detailed above, including a 1.9 cm TI-RADS 3 and 0.8 cm TI-RADS 4 nodule.TI-RADS category TR3, Mildly Suspicious. Follow-up thyroid ultrasound at 1, 3, and 5 years is recommended. (Reference: Blaine) REFERENCES: Blaine FN, Darrion WD, Colin SHERIDAN et al. ACR Thyroid Imaging, Reporting and Data System (TI-RADS): White Paper of the ACR TI-RADS Committee. J Am Robin Radiol. 2017; 14: 587-595.
== END 2025-06-15 13:22 | disposition home or self-care (01) ==
LOC: RAD 13:22
PROVIDERS: PCP Internal Medicine; Visit Provider Internal Medicine
DX: E05.20 Thyrotoxicosis with toxic multinodular goiter without thyrotoxic crisis or storm (principal); R93.89 Abnormal findings on diagnostic imaging of other specified body structures; E04.2 Nontoxic multinodular goiter
CPT/HCPCS: 76536